=== PATIENT | female | born 1995 | race Caucasian/White ===

== ENCOUNTER 2021-01-14 21:16 | Emergency (ER) | payer MEDICAID ==
[~2021-01-14] VITALS: Ht 160 cm; Wt 69.0 kg
[2021-01-14] MEDS ORDERED: IBUPROFEN 600MG TABLET PO ONE (22:45)
[2021-01-14] MEDS ORDERED: IBUP-2029 MT (23:29)
[2021-01-14 23:41] VITALS: BP 121/66
== END 2021-01-15 | disposition home or self-care (01) ==
LOC: ER 21:16
DX: S60.042A Contusion of left ring finger without damage to nail, initial encounter (principal); R10.2 Pelvic and perineal pain; Z97.5 Presence of (intrauterine) contraceptive device; W01.0XXA Fall on same level from slipping, tripping and stumbling without subsequent striking against object, initial encounter; Y93.89 Activity, other specified; Y92.811 Bus as the place of occurrence of the external cause; Y99.8 Other external cause status
CPT/HCPCS: 73140; 99283; Z7610